=== PATIENT | male | born 1960 | race Caucasian/White ===

== ENCOUNTER → 2018-10-26 | Outpatient (CLI) | payer MEDICARE, MEDICAID ==
--- NOTE | 2018-10-26 11:28 | Diagnostic Imaging Report ---
CLINICAL INDICATION: Patient complains of body tremors, insomnia. Exam: Axial CT scan of the brain without contrast. Auto Exposure Controls were utilized during the CT exam to meet ALARA standards for radiation dose reduction. Comparison: None. Findings: There is no evidence of acute cerebral infarct, intracranial hemorrhage, or gross mass effect. The brain parenchymal volume appears appropriate for patient's age. There are a few patchy areas of low-attenuation white matter changes involving both cerebral hemispheres, likely representing chronic small vessel ischemic disease. There is normal thomas-white matter distinction. There is no significant midline shift or herniation. There is no evidence of hydrocephalus. The basal cisterns are unremarkable. The skull, extracranial soft tissue, and orbits are unremarkable. The paranasal sinuses are unremarkable. Temporal bones show no significant abnormality. Impression: 1: Unremarkable CT scan of the brain for age. 2: Likely mild chronic small vessel ischemic disease. Dictated by: Dictated on workstation # [id number]
== END ==
LOC: RAD FS 11:02
PROVIDERS: ATTEND Psychiatry & Neurology Neurology
DX: G25.0 Essential tremor (principal); G47.00 Insomnia, unspecified
CPT/HCPCS: 70450

== ENCOUNTER 2022-12-04 05:50 | Outpatient (CLI) | payer MEDICARE, MEDICAID ==
[~2022-12-04] VITALS: Ht 182.9 cm; Wt 122.0 kg
[2022-12-04] MEDS ORDERED: LACTATED RINGERS 1,000 ML IV STA (17:17)
[2022-12-04] MEDS ORDERED: TMSL.4C PO (17:38)
[2022-12-04] MEDS ORDERED: HYDR-700 PO (17:38)
[2022-12-04] MEDS ORDERED: VILA20TA PO (17:38)
[2022-12-04] MEDS ORDERED: ACET-93 PO (17:38)
[2022-12-04] MEDS ORDERED: POLY17PO54 PO (17:38)
[2022-12-04] MEDS ORDERED: BETA15CR4 TP (17:38)
[2022-12-04] MEDS ORDERED: FAMO40TA6 PO (17:38)
[2022-12-04] MEDS ORDERED: OXYB5TAB13 PO (17:38)
[2022-12-04] MEDS ORDERED: PRAV20TA3 PO (17:38)
[2022-12-04] MEDS ORDERED: TIMO5DRO16 OP (17:38)
[2022-12-04] MEDS ORDERED: LORA10TA7 PO (17:38)
[2022-12-04] MEDS ORDERED: LISI5TAB20 PO (17:38)
[2022-12-04] MEDS ORDERED: DIVA-21 PO (17:38)
[2022-12-04] MEDS ORDERED: NYST15CR35 TP (17:38)
[2022-12-04] MEDS ORDERED: QUET25TA35 PO (17:38)
== END 2022-12-04 17:39 ==
LOC: PREOP 05:50
PROVIDERS: ATTEND Surgery
DX: Z01.818 Encounter for other preprocedural examination (principal)

== ENCOUNTER 2022-12-09 07:59 | Day surgery (SDC) | payer MEDICARE, MEDICAID ==
[~2022-12-09] VITALS: Ht 183 cm; Wt 122.0 kg
[~2022-12-09 07:59] MED LIST: ACET-93 PO; BETA15CR4 TP; DIVA-21 PO; FAMO40TA6 PO; HYDR-700 PO; LISI5TAB20 PO; LORA10TA7 PO; NYST15CR35 TP; OXYB5TAB13 PO; POLY17PO54 PO; PRAV20TA3 PO; QUET25TA35 PO; TIMO5DRO16 OP; TMSL.4C PO; VILA20TA PO
[2022-12-09] MEDS ORDERED: LACTATED RINGERS 1,000 ML IV STA (08:24)
--- NOTE | 2022-12-09 08:28 | Progress Note-Pre Operative ---
Pre-Operative Progress Note Date of Available H&P: Nov 26, 2022 Date H&P Reviewed: Dec 09, 2022 Time H&P Reviewed: 08:25 History & Physical: H&P Reviewed, Patient Examed, No changes noted Pre-Operative Diagnosis: Screening ELADIA BUSTAMANTE DO Dec 09, 2022 08:28
[2022-12-09 08:35] VITALS: BP 157/94
[2022-12-09] MEDS ORDERED: PROPOFOL INJECTION 50 ML IV ONE (09:22)
--- NOTE | 2022-12-09 09:56 | Anesthesia-General Post-Op ---
MAC Patient Condition Mental Status/LOC: Same as Preop Cardiovascular: Satisfactory Nausea/Vomiting: Absent Respiratory: Satisfactory Pain: Controlled Complications: Absent Post Op Complications Complications None Follow Up Care/Instructions Patient Instructions None needed. Anesthesiology Discharge Order Discharge Order Patient is doing well, no complaints, stable vital signs, no apparent adverse anesthesia problems. No complications reported per nursing. SUZANNE VALENTINE CRNA Dec 09, 2022 09:55
[2022-12-09 10:00] VITALS: BP 108/64
--- NOTE | 2022-12-09 10:01 | Progress Note-Post Operative ---
Post-Operative Progess Note Surgeon (s)/Preload Supervisor (s) Surgeon ELADIA BUSTAMANTE DO Preload Supervisor: none Pre-Operative Diagnosis Screening Post-Operative Diagnosis Polyps diverticula int hemorrhoids Procedure & Operative Findings Date of Procedure 12/09/22 Procedure Performed/Findings Colonoscopy with snare polypectomy Colonoscopy with tattooing PROCEDURE NOTE: After informed consent was obtained, the patient was brought to the endoscopy suite, placed in bed in left lateral decubitus position. He was administered IV sedation by the VOCATIONAL PLACEMENT SPECIALIST who then monitored his vitals the entire time, heart rate, blood pressure and pulse ox and the scope was inserted, on the way in noted diverticula mainly on the left but some in the right colon. In the ascending colon found a flat polyp and removed it with hot snare. Then pushed all the way to about 150 cm and pushed into the cecum, took a picture of appendiceal orifice and noted the ileocecal valve. I found another flat polyp in the cecum and removed this with hot snare. Then slowly withdrew the scope insufflating to look circumferentially at the marinelli starting in the cecum and up the ascending colon. Just outside the cecum found a large (almost carpet) area of polyps. Used the hot snare numerous times to try and get all of it; not sure that I was able to. I then decided to tattoo just distal to the area. Next, continued up to the hepatic flexure, then down the transverse colon to the splenic flexure, into the descending colon down into the sigmoid and finally into the rectal vault. I retroflexed the scope and took a picture of the internal hemorrhoids. The patient tolerated the procedure. He was recovered in endoscopy suite. Recommended for repeat colonoscopy in 1 year, may need colon resection before that; it is at least an option. Anesthesia Type IV sedation by VOCATIONAL PLACEMENT SPECIALIST Estimated Blood Loss Estimated blood loss (mL): scant Specimens/Packing Specimens Removed ascending colon polyp cecal polyp ascending colon polyp ELADIA BUSTAMANTE DO Dec 09, 2022 10:01
--- NOTE | 2022-12-09 10:02 | Endoscopy Discharge Instruct ---
Endo Procedure/Findings Findings 1.: Polyp 2.: Diverticulosis 3.: Internal Hemorrhoids Discharge Instructions - Activity: You might feel a little sleepy until tomorrow. This is due to the medicine you received to relax you. Until tomorrow, you should: NOT drive a car, operate machinery or power tools. NOT drink any alcoholic beverages. NOT make any important decisions or sign importortant papers. Do not return to work until tomorrow, unless otherwise instructed. Resume previous activities tomorrow. Diet: Start by taking liquids. If you tolerate liquids, advance to solid food. 1.: Colonoscopy in 1 year Notify Physician - If you experience excessive bleeding, unusual abdominal pain, fever, or chest pain, contact your doctor immediately. Follow-Up: Other Follow up in my office in one week ELADIA BUSTAMANTE DO Dec 09, 2022 10:02
[2022-12-09 10:05] VITALS: BP 107/68
[2022-12-09 10:10] VITALS: BP 149/82
[2022-12-09 10:24] VITALS: BP 149/82
== END 2022-12-09 10:38 | disposition home or self-care (01) ==
LOC: ENDO 07:59
PROVIDERS: ATTEND Surgery
DX: Z12.11 Encounter for screening for malignant neoplasm of colon (principal); D12.2 Benign neoplasm of ascending colon; D12.0 Benign neoplasm of cecum; K57.30 Diverticulosis of large intestine without perforation or abscess without bleeding; K64.8 Other hemorrhoids; E66.9 Obesity, unspecified; Z68.36 Body mass index [BMI] 36.0-36.9, adult